=== PATIENT | male | born 1990 | race African-American/Black ===

== ENCOUNTER 2021-04-13 10:58 | Emergency (ER) | payer OTHER ==
[2021-04-13] MEDS ORDERED: SODIUM BICARBONATE 50 MEQ/50 ML ABBOJECT IV ONE (10:59)
[2021-04-13] MEDS ORDERED: EPINEPHRINE ABBOJECT 1 MG IV ONE (10:59)
[2021-04-13] MEDS ORDERED: Sodium Chloride 0.9% 1000 ML 1,000 ML IV ONE (10:59)
--- NOTE | 2021-04-13 11:04 | ERPHSYRPT ---
- Events Time Seen by Provider: 04/13/21 11:03 Reason for Code Rapid: full arrest Pre-Event Complaints: found unresponsive CPR initiated prior to MD arrival: Yes
--- NOTE | 2021-04-13 11:11 | ERPHSYRPT ---
- History of Present Illness Time Seen by Provider: 04/13/21 11:00 Source: EMS Exam Limitations: clinical condition Physician History: 31 years old -[place] male from care home is brought in the ER after he collapsed around 9:50 AM today and CPR was started at 10:10 AM with normal return of spontaneous circulation. By that time EMS arrived at the scene/correction patient was in pulseless arrest. I gel airway was placed in by EMS. ACLS protocol was followed and patient was given 3 rounds of epi and bicarb prior to arrival. On presentation patient has asystole. CPR was continued, given another round of epi and bicarb. Patient was cool clammy with cyanotic extr emities. Ultrasound showed standstill of heart with normal cardiac activity at all and no spontaneous breathing effort. Timing/Duration: hour(s) (1), sudden Severity: severe Modifying Factors: Improves With: nothing - Review of Systems All Other Systems: Unable due to condition - Physical Exam Eye Exam: other (Fixed 4 mm dilated pupils not reacting to light.) Ears, Nose, Throat Exam: TMs normal Neck Exam: normal inspection, supple Respiratory Exam: other (No spontaneous respiratory effort. Bilateral air movements with bag ventilation through Igel) Cardiovascular Exam: other (No heart sounds) Gastrointestinal/Abdomen Exam: No distention Extremity Exam: other (Cyanosis extremities) Neurologic Exam: other (Abnormal tone.) Skin Exam: cyanosis SpO2 Interpretation: hypoxic - Progress Progress: unchanged, re-examined Progress Note: 04/13/21 11:12 Patient downtime is more than 1 hour without return of spontaneous circulatio. No heart activity on ultrasound. No spontaneous breathing effort. No pupillary response. Peripheral cyanosis and cool clammy. I was going to tube the patient but do not think it would make any difference as further resuscitative measures would be futile. Patient is pronounced. - Departure Departure Disposition: Clinical Impression: Cardiac arrest Condition: Critical Care Time: No
[2021-04-13 11:46] VITALS: PULSE 0
== END 2021-04-13 12:00 | disposition expired ==
LOC: EEVIPCON 10:58 → ED 10:58
DX: I46.9 Cardiac arrest, cause unspecified (principal)
CPT/HCPCS: 51701; 94799; 96374; 96375; 99284; J0171